=== PATIENT | male | born 1945 | race Caucasian/White ===

== ENCOUNTER → 2016-04-22 | Outpatient (CLI) | payer OTHER, BC | LOC: BHFA 13:00 | PROVIDERS: ATTEND Internal Medicine Cardiovascular Disease | DX: I25.5 Ischemic cardiomyopathy (principal); I25.10 Atherosclerotic heart disease of native coronary artery without angina pectoris ==

== ENCOUNTER → 2016-04-30 | Outpatient (CLI) | payer OTHER, BC ==
[~2016-04-30] MED LIST: PENTAMIDINE ISETHIONATE 300MG/6ML INH SYRINGE NEB ONE
== END ==
LOC: FCP 07:52
PROVIDERS: ATTEND Internal Medicine Nephrology
DX: Z29.8 Encounter for other specified prophylactic measures (principal); Z94.0 Kidney transplant status
CPT/HCPCS: 94642; J2545

== ENCOUNTER → 2016-05-29 | Outpatient (CLI) | payer OTHER, BC | LOC: FCP 07:59 | PROVIDERS: ATTEND Internal Medicine Nephrology | PROC: 3E0F7GC Introduction of Other Therapeutic Substance into Respiratory Tract, Via Natural or Artificial Opening (ICD-10-PCS; principal; 2016-05-29) | DX: Z94.0 Kidney transplant status (principal) | CPT/HCPCS: 94642; J2545 ==

== ENCOUNTER 2016-09-05 20:56 | Emergency (ER) | payer OTHER, BC ==
[~2016-09-05 20:56] MED LIST changes: -PENTAMIDINE ISETHIONATE 300MG/6ML INH SYRINGE NEB ONE; +VANCOMYCIN 125 MG/2.5 ML UDL PO SCH
[2016-09-05 21:04] VITALS: RESP 16; TEMP 97.9; O2SAT 96
[2016-09-05] MEDS ORDERED: NS 1,000 ML IV ONE (21:30)
--- NOTE | 2016-09-05 21:33 | EDPHY ---
H & P Stated Complaint: diarrhea x2h; referred by for dehydration d/t kidney transplant HPI/ROS: CHIEF COMPLAINT: Diarrhea, possible C diff HISTORY OF PRESENT ILLNESS: Patient complains of diarrhea x1 day. This started this afternoon. Took some Imodium and is helped, but he still he is producing clear liquid. He has had 6 episodes of diarrhea. No fever. No abdominal pain. He is here because he tested positive for C difficile colitis earlier this month. He was treated for 14 days. He felt well until today. He contacted his track repair worker as he is status post renal transplant. They recommended that he come here for IV fluid resuscitation and prophylactic treatment. He has no abdominal pain of any kind. No fever. No difficulty urinating pain creatinine has been at 1.0 consistently over the past 2 weeks. No other associated complaints or modifying factors. PREVIOUS ABDOMINAL SURGERIES/DIAGNOSES: Nephrectomy 9 months ago with transplant REVIEW OF SYSTEMS: Ten systems reviewed and are negative unless otherwise noted in the HPI EXAMINATION: General Appearance: Alert, no distress Head: normocephalic, atraumatic Eyes: Pupils equal and round, no conjunctival pallor or injection ENT, Mouth: Mucous membranes moist. Uvula midline. Neck: Normal inspection, supple, non-tender Respiratory: Lungs are clear to auscultation. No wheezing, rhonchi or crackles Cardiovascular: Regular rate and rhythm. No murmur. Pulses intact distally Gastrointestinal: Abdomen is soft and nontender. No tympany. No rigidity. No distention. Non-acute abdomen. Back: non-tender, no bony abnormalities Neurological: A&O, nonfocal Skin: Warm and dry, no rash Extremities: Nontender, no pedal edema Psychiatric: Mood and affect normal DIFFERENTIAL DIAGNOSES: Including but not limited to C difficile colitis, diarrhea, viral diarrhea, dehydration, electrolyte disturbance MDM: 9:30 p.m. Diarrhea in a patient with C difficile colitis earlier this month. Vital signs are stable. No abdominal pain. Given the fact that he is a renal transplant patient, track repair worker sent him here for IV fluid resuscitation and GI pathogen profile. He is in no acute distress. Laboratory studies are pending. 10:44 p.m. Laboratory studies are well within normal limits. GI pathogen panel is pending and will not be back until tomorrow. The patient has requested that we treat him for the possibility of C diff. Given this would be a recurrence, I have ordered p. o. vancomycin at his request for we discussed the risks and benefits of doing so without knowing if he is positive for C diff. He is willing to assume the risk. He is discharged home with 1st dose here, and we will provide prescription for the next 2 doses to provide him time to fill his prescription tomorrow. He already has an appoint with primary care physician tomorrow that he will keep. He is to return to ER for difficulty keeping anything down, persistent diarrhea, fever or abdominal pain. He is comfortable with this plan and discharged home stable condition ED Precautions: Worsening pain. Fever. Bloody stools. Bloody emesis. Constipation or diarrhea. SUPERVISION: This patient was independently evaluated without direct examination by the attending physician. Case was discussed with attending physician. Source: Patient, Family Exam Limitations: No limitations - Personal History Current Tetanus/Diphtheria Vaccine: Yes Current Tetanus Diphtheria and Acellular Pertussis (TDAP): Yes - Medical/Surgical History Hx Asthma: No Hx Chronic Respiratory Disease: No Hx Diabetes: No Hx Cardiac Disease: Yes Hx Renal Disease: Yes Hx Cirrhosis: No Hx Alcoholism: No Hx HIV/AIDS: No Hx Splenectomy or Spleen Trauma: No Other PMH: kidney transplant. stent x 2, [place] 2009. Hypertension - Social History Smoking Status: Former smoker Constitutional: Initial Vital Signs Temperature (C) 97.9 F 09/05/16 20:59 Heart Rate 86 09/05/16 20:59 Respiratory Rate 16 09/05/16 20:59 Blood Pressure 160/89 H 09/05/16 20:59 O2 Sat (%) 96 09/05/16 20:59 O2 Delivery Mode Room Air Allergies/Adverse Reactions: fentanyl Allergy (Mild, Verified 02/24/16 11:26) Vomiting morphine Allergy (Verified 02/24/16 11:26) isotopes Allergy (Uncoded 08/17/14 10:04) Home Medications: Medication Instructions Recorded Acetaminophen [Tylenol ES 500 mg 500 - 1,000 mg PO Q6 PRN 03/09/16 (*)] Aspirin [Aspirin 81mg (*)] 81 mg PO DAILY 03/09/16 Carvedilol [Coreg (*)] 12.5 mg PO BIDMEAL 03/09/16 Mycophenolate Sodium [Myfortic] 720 mg PO BID 03/09/16 Omeprazole [Prilosec 20 mg] 20 mg PO BID 03/09/16 Simvastatin 20 mg PO DAILY@20 03/09/16 Tacrolimus [Prograf] 1 mg PO DAILY 03/09/16 Tacrolimus [Prograf] 2 mg PO HS 03/09/16 Thyroid,Pork [ARMOUR THYROID] 15 mg PO DAILY 03/09/16 predniSONE 15 mg PO DAILY 03/09/16 valGANciclovir [ValCYTE] 450 mg PO DAILY 03/09/16 Vancomycin [Vancomycin (*)] 125 mg PO Q6 #2 cap 09/05/16 Vancomycin [Vancomycin (*)] 125 mg PO Q6 #39 cap 09/05/16 Medical Decision Making - Data Points Laboratory Results: Laboratory Results 09/05/16 21:54 09/05/16 21:54 09/05/16 09/05/16 21:54 21:54 WBC 4.97 10^3/uL 10^3/uL (3.80-9.50) RBC 4.24 10^6/uL L 10^6/uL (4.40-6.38) Hgb 12.5 g/dL L g/dL (13.7-17.5) Hct 36.6 % L % (40.0-51.0) MCV 86.3 fL fL (81.5-99.8) MCH 29.5 pg pg (27.9-34.1) MCHC 34.2 g/dL g/dL (32.4-36.7) RDW 14.2 % % (11.5-15.2) Plt Count 148 10^3/uL L 10^3/uL (150-400) MPV 12.2 fL H fL (8.7-11.7) Neut % (Auto) 63.1 % % (39.3-74.2) Lymph % (Auto) 25.4 % % (15.0-45.0) [place] % (Auto) 10.3 % % (4.5-13.0) Eos % (Auto) 0.4 % L % (0.6-7.6) Baso % (Auto) 0.2 % L % (0.3-1.7) Nucleat RBC Rel Count 0.0 % % (0.0-0.2) Absolute Neuts (auto) 3.14 10^3/uL 10^3/uL (1.70-6.50) Absolute Lymphs (auto) 1.26 10^3/uL 10^3/uL (1.00-3.00) Absolute Monos (auto) 0.51 10^3/uL 10^3/uL (0.30-0.80) Absolute Eos (auto) 0.02 10^3/uL L 10^3/uL (0.03-0.40) Absolute Basos (auto) 0.01 10^3/uL L 10^3/uL (0.02-0.10) Absolute Nucleated RBC 0.00 10^3/uL 10^3/uL (0-0.01) Immature Gran % 0.6 % % (0.0-1.1) Immature Gran # 0.03 10^3/uL 10^3/uL (0.00-0.10) Sodium 134 mEq/L mEq/L (134-144) Potassium 3.8 mEq/L mEq/L (3.5-5.2) Chloride 106 mEq/L mEq/L (97-110) Carbon Dioxide 21 mEq/l L mEq/l (22-31) Anion Gap 7 mEq/L L mEq/L (8-16) BUN 16 mg/dL mg/dL (7-23) Creatinine 1.0 mg/dL mg/dL (0.7-1.3) Estimated GFR > 60 Glucose 139 mg/dL H mg/dL (70-100) Calcium 10.2 mg/dL mg/dL (8.5-10.4) Total Bilirubin 0.5 mg/dL mg/dL (0.1-1.4) Conjugated Bilirubin 0.3 mg/dL mg/dL (0.0-0.5) Unconjugated Bilirubin 0.2 mg/dL mg/dL (0.0-1.1) AST 36 IU/L IU/L (17-59) ALT 51 IU/L IU/L (21-72) Alkaline Phosphatase 118 IU/L IU/L (38-126) Total Protein 6.3 g/dL g/dL (6.3-8.2) Albumin 3.6 g/dL g/dL (3.5-5.0) Lipase 292.0 IU/L IU/L (23-300) Medications Given: Discontinued Medications Sodium Chloride (Ns) 1,000 mls @ 0 mls/hr IV ONCE ONE PRN Reason: Wide Open Stop: 09/05/16 21:31 Last Admin: 09/05/16 21:30 Dose: 1,000 mls Departure - Departure Disposition: Home, Routine, Self-Care Clinical Impression: Diarrhea Qualifiers: Diarrhea type: unspecified type Qualified Code(s): R19.7 - Diarrhea, unspecified Condition: Good Instructions: Dehydration (ED), Acute Diarrhea (ED), Clostridium Difficile Infection (ED) Additional Instructions: 1. Increase fluid intake 2. Keep appointment with primary care physician tomorrow 3. Return here for any worsening diarrhea, difficulty keeping liquids down, fever or any abdominal pain Referrals: Yaakov Rodriguez MD [Primary Care Provider] - As per Instructions Prescriptions: Vancomycin [Vancomycin (*)] 125 mg PO Q6 #39 cap Vancomycin [Vancomycin (*)] 125 mg PO Q6 #2 cap
[2016-09-05 22:21] LABS: % IMMATURE GRANULYOCYTES 0.6 % (0.0-1.1); ABSOLUTE IMMATURE GRANULOCYTES 0.03 10^3/uL (0.00-0.10); ADD DIFF? NO; ADD MORPH? NO; ADD SCAN? NO; ATYPICAL LYMPHOCYTE FLAG 40 (0-99); FRAGMENT RBC FLAG 0 (0-99); HEMATOCRIT 36.6 % (40.0-51.0); HEMOGLOBIN 12.5 g/dL (13.7-17.5); LEFT SHIFT FLG 0 (0-99); LIPEMIA HEMOLYSIS FLAG 90 (0-99); MEAN CELL HEMOGLOBIN 29.5 pg (27.9-34.1); MEAN CELL HEMOGLOBIN CONCENTR. 34.2 g/dL (32.4-36.7); MEAN CELL VOLUME 86.3 fL (81.5-99.8); MEAN PLATELET VOLUME 12.2 fL (8.7-11.7); PLATELET CLUMPS FLAG 10 (0-99); PLATELET COUNT 148 10^3/uL (150-400); RED BLOOD CELL COUNT 4.24 10^6/uL (4.40-6.38); RED CELL DISTRIBUTION WIDTH 14.2 % (11.5-15.2)
[2016-09-05 22:36] LABS: ALANINE AMINOTRANSFERASE 51 IU/L (21-72); ALBUMIN 3.6 g/dL (3.5-5.0); ALKALINE PHOSPHATASE 118 IU/L (38-126); ANION GAP 7 mEq/L (8-16); ASPARTATE AMINOTRANSFERASE 36 IU/L (17-59); BILIRUBIN,TOTAL 0.5 mg/dL (0.1-1.4); BILIRUBIN-CONJUGATED 0.3 mg/dL (0.0-0.5); BILIRUBIN-UNCONJUGATED 0.2 mg/dL (0.0-1.1); CALCIUM 10.2 mg/dL (8.5-10.4); CARBON DIOXIDE 21 mEq/l (22-31); CHLORIDE 106 mEq/L (97-110); GLOMERULAR FILTRATION RATE > 60; GLUCOSE 139 mg/dL (70-100); POTASSIUM 3.8 mEq/L (3.5-5.2); SODIUM 134 mEq/L (134-144); TOTAL PROTEIN 6.3 g/dL (6.3-8.2)
[2016-09-05] MEDS: VANCOMYCIN 125 MG/2.5 ML UDL PO SCH ×2 (23:02→23:06)
[2016-09-05 23:05] VITALS: BP 140/82; PULSE 80
== END 2016-09-05 23:06 | disposition home or self-care (01) ==
DX: R19.7 Diarrhea, unspecified (principal); I10 Essential (primary) hypertension; I25.2 Old myocardial infarction; Z79.82 Long term (current) use of aspirin; Z87.891 Personal history of nicotine dependence; Z95.5 Presence of coronary angioplasty implant and graft

== ENCOUNTER → 2016-09-20 | Outpatient (CLI) | payer OTHER, BC | LOC: FIMAGING 11:01 | PROVIDERS: ATTEND Internal Medicine Nephrology | DX: Z13.820 Encounter for screening for osteoporosis (principal); M81.0 Age-related osteoporosis without current pathological fracture; E07.9 Disorder of thyroid, unspecified; Z79.52 Long term (current) use of systemic steroids ==

== ENCOUNTER → 2018-01-22 | Outpatient (CLI) | payer OTHER, BC | LOC: FIMAGING 14:49 | PROVIDERS: ATTEND Internal Medicine Nephrology | DX: E04.1 Nontoxic single thyroid nodule (principal) ==

== ENCOUNTER 2018-03-29 07:54 | Emergency (ER) | payer OTHER, BC ==
--- NOTE | 2018-03-29 08:08 | EDPHY ---
H & P Stated Complaint: Sob episodes x ~ 1week Time Seen by Provider: 03/29/18 08:07 HPI/ROS: CHIEF COMPLAINT: Intermittent dyspnea HISTORY OF PRESENT ILLNESS: The patient presents to the ED with a one-week history of intermittent dyspnea. The patient has a history of coronary artery disease and is status post kidney transplant 2 years ago. The patient is scheduled to fly to [place] today. He was concerned about his intermittent dyspnea and stops at the emergency department today because he "just wants to make sure everything is okay before getting on a plane at 11:00 a.m. today." The patient denies any fever, he denies any pleuritic chest pain. He denies any asymmetric calf pain or swelling. The patient denies any acute abdominal pain. He denies additional complaints. The patient does report some very vague complaints of nasal congestion. He believes he may have encountered somewhat who was sick earlier this week. REVIEW OF SYSTEMS: A comprehensive 10 point review of systems is otherwise negative aside from elements mentioned in the history of present illness. Source: Patient - Medical/Surgical History Hx Asthma: No Hx Chronic Respiratory Disease: No Hx Diabetes: No Hx Cardiac Disease: Yes Hx Renal Disease: Yes Hx Cirrhosis: No Hx Alcoholism: No Hx HIV/AIDS: No Hx Splenectomy or Spleen Trauma: No Other PMH: kidney transplant. stent x 2, [place] 2008,2012. Hypertension - Social History Smoking Status: Former smoker - Physical Exam Exam: General Appearance: Alert, somewhat anxious, no acute distress Eyes: Pupils equal and round no pallor or injection ENT, Mouth: Mucous membranes moist Respiratory: There are no retractions, lungs are clear to auscultation Cardiovascular: Regular rate and rhythm Gastrointestinal: Abdomen is soft and nontender, no masses, bowel sounds normal Neurological: 5/5 strength noted all 4 extremities Skin: Warm and dry, no rashes Musculoskeletal: Neck is supple nontender Extremities: No edema, no clinical evidence of DVT Psychiatric: Patient is oriented X 3, there is no agitation Constitutional: Initial Vital Signs Temperature (C) 36.5 C 03/29/18 07:57 Heart Rate 78 03/29/18 07:57 Respiratory Rate 16 03/29/18 07:57 Blood Pressure 158/90 H 03/29/18 07:57 O2 Sat (%) 97 03/29/18 07:57 O2 Delivery Mode Room Air Allergies/Adverse Reactions: fentanyl Allergy (Mild, Verified 02/24/16 11:26) Vomiting morphine Allergy (Verified 02/24/16 11:26) isotopes Allergy (Uncoded 08/17/14 10:04) Home Medications: Medication Instructions Recorded Aspirin 81mg (*) 03/29/18 Carvedilol 03/29/18 SIMVASTATIN 03/29/18 Sensipar 03/29/18 Tacrolimus 03/29/18 predniSONE 03/29/18 Medical Decision Making - Diagnostics EKG Interpretation: EKG: Complete interpretation has been separately recorded in the [facility] archive. Summary impression: Sinus rhythm, left axis deviation, nonspecific ST T wave changes noted. Imaging Results: Imaging Impressions Chest X-Ray 03/29/18 08:16 Impression: Mild peribronchial thickening which can be seen with mild fluid overload or airways disease/bronchitis. ED Course/Re-evaluation: The patient presents to the ED for intermittent dyspnea which is nonexertional over the past week. The patient has no symptoms suggestive of pulmonary embolism. He currently is asymptomatic. He denies chest pain. The patient has no evidence of acute ischemia on his EKG. The patient's i-STAT troponin is normal. The patient was slightly hypertensive upon arrival. However upon recheck it was noted to be 127/83 without intervention. Chest x-ray demonstrates no evidence of significant heart failure. There is questionable bronchitis noted Patient has no evidence of kidney dysfunction. At this point time I find no objective evidence of a unstable medical condition. It is certainly possible he has mild bronchitis although clinically does not have symptoms consistent with cough. At this point time I do feel the patient can be discharged home with instructions to follow up with his talent acquisition coordinator for further evaluation. The patient is discharged home with customary aftercare instructions and return precautions. Differential Diagnosis: Differential diagnosis considered includes hypertension, heart failure, pulmonary edema, uremia - Data Points Laboratory Results: Laboratory Results 03/29/18 08:32 03/29/18 08:32 03/29/18 03/29/18 03/29/18 08:36 08:32 08:32 WBC 9.57 10^3/uL H 10^3/uL (3.80-9.50) RBC 5.05 10^6/uL 10^6/uL (4.40-6.38) Hgb 14.6 g/dL g/dL (13.7-17.5) Hct 44.0 % % (40.0-51.0) MCV 87.1 fL fL (81.5-99.8) MCH 28.9 pg pg (27.9-34.1) MCHC 33.2 g/dL g/dL (32.4-36.7) RDW 14.6 % % (11.5-15.2) Plt Count 169 10^3/uL 10^3/uL (150-400) MPV 11.0 fL fL (8.7-11.7) Neut % (Auto) 48.8 % % (39.3-74.2) Lymph % (Auto) 37.8 % % (15.0-45.0) [place] % (Auto) 11.8 % % (4.5-13.0) Eos % (Auto) 1.0 % % (0.6-7.6) Baso % (Auto) 0.3 % % (0.3-1.7) Nucleat RBC Rel Count 0.0 % % (0.0-0.2) Absolute Neuts (auto) 4.66 10^3/uL 10^3/uL (1.70-6.50) Absolute Lymphs (auto) 3.62 10^3/uL H 10^3/uL (1.00-3.00) Absolute Monos (auto) 1.13 10^3/uL H 10^3/uL (0.30-0.80) Absolute Eos (auto) 0.10 10^3/uL 10^3/uL (0.03-0.40) Absolute Basos (auto) 0.03 10^3/uL 10^3/uL (0.02-0.10) Absolute Nucleated RBC 0.00 10^3/uL 10^3/uL (0-0.01) Immature Gran % 0.3 % % (0.0-1.1) Immature Gran # 0.03 10^3/uL 10^3/uL (0.00-0.10) Sodium 143 mEq/L mEq/L (135-145) Potassium 4.1 mEq/L mEq/L (3.5-5.2) Chloride 112 mEq/L H mEq/L (97-110) Carbon Dioxide 24 mEq/l mEq/l (22-31) Anion Gap 7 mEq/L mEq/L (6-14) BUN 16 mg/dL mg/dL (7-23) Creatinine 0.9 mg/dL mg/dL (0.7-1.3) Estimated GFR > 60 Glucose 90 mg/dL mg/dL (70-100) Calcium 8.9 mg/dL mg/dL (8.5-10.4) POC Troponin I 0.00 ng/mL ng/mL (0.00-0.08) Point of Care Test Results: Chemistry 03/29/18 08:36 POC Troponin I 0.00 ng/mL ng/mL (0.00-0.08) Departure - Departure Disposition: Home, Routine, Self-Care Clinical Impression: Dyspnea Condition: Good Instructions: Dyspnea (ED) Additional Instructions: 1. The workup in the emergency department today is reassuring. It is possible you are developing a mild case of bronchitis. 2. I do recommend scheduling a follow-up visit with your talent acquisition coordinator for a complete cardiac evaluation. 3. Return to the ED for severe chest pain, shortness of breath or other concerns. Referrals: Yaakov Rodriguez MD [Primary Care Provider] - As per Instructions
[2018-03-29 08:40] LABS: PLATELET COUNT 169 10^3/uL (150-400)
--- NOTE | 2018-03-29 09:16 | CPEKG ---
Test Reason : OPEN Blood Pressure : / mmHG Vent. Rate : 072 BPM Atrial Rate : 071 BPM P-R Int : 161 ms QRS Dur : 093 ms QT Int : 395 ms P-R-T Axes : 041 -37 110 degrees QTc Int : 433 ms Sinus rhythm Left axis deviation Probable anterior infarct, age indeterminate Confirmed by Roberto Trevino ([id number]) on 03/29/2018 9:16:02 AM Referred By: Confirmed By:Roberto Trevino
[2018-03-29 09:59] VITALS: BP 125/86
== END 2018-03-29 09:56 | disposition home or self-care (01) ==
DX: R06.00 Dyspnea, unspecified (principal); I10 Essential (primary) hypertension; I25.10 Atherosclerotic heart disease of native coronary artery without angina pectoris; I25.2 Old myocardial infarction; Z94.0 Kidney transplant status; Z95.5 Presence of coronary angioplasty implant and graft; Z87.891 Personal history of nicotine dependence
CPT/HCPCS: 84484-PO

== ENCOUNTER → 2018-06-09 | Outpatient (CLI) | payer OTHER, BC | LOC: FIMAGING 08:23 | PROVIDERS: ATTEND Internal Medicine | DX: R05 Cough (principal) ==